=== PATIENT | female | born 1990 | race African-American/Black ===

== ENCOUNTER 2023-07-09 10:50 | Emergency (ER) | payer OTHER ==
[~2023-07-09] VITALS: Ht 165.1 cm; Wt 120.8 kg
[2023-07-09 10:53] VITALS: BP 101/78; PULSE 83; RESP 16; TEMP 97.6; O2SAT 100
== END 2023-07-09 11:23 | disposition home or self-care (01) ==
LOC: ER 10:51
DX: S29.012A Strain of muscle and tendon of back wall of thorax, initial encounter (principal); X58.XXXA Exposure to other specified factors, initial encounter; Y93.89 Activity, other specified; Y92.89 Other specified places as the place of occurrence of the external cause; Y99.8 Other external cause status
CPT/HCPCS: 99282

== ENCOUNTER 2025-03-17 18:41 | Emergency (ER) | payer MEDICARE, OTHER ==
[~2025-03-17] VITALS: Ht 165.1 cm; Wt 126.8 kg
[2025-03-17] MEDS: ketorolac trometh 30MG/ML vial 30 MG/ML VIAL IM STA (20:41)
[2025-03-17] MEDS ORDERED: IBUP-1986 PO (21:08)
[2025-03-17] MEDS ORDERED: ACET-1025 PO (21:08)
--- NOTE | 2025-03-17 21:09 | Physician Documentation ---
History of Present Illness ~ Chief Complaint: Back Pain Stated Complaint: BACK PAIN Time Seen by MD: 19:18 HPI Patient is seen today with complaints of acute on chronic low back pain. Patient states she has a long history of back pain and scoliosis with back surgeries and states she has some painful orthopedic hardware. Patient denies currently taking Tylenol or ibuprofen. She denies any saddle anesthesia or changes in bowel or bladder habits or numbness or tingling of her upper or lower extremities. Patient has no other concern or complaint at this time. She denies taking opiate pain medications currently. Medication Reconciliation Allergies: Coded Allergies: No Known Allergies (Unverified , 03/17/25) Review of Systems Constitutional: Denies: chills, fever, weakness Eyes: Denies: pain, blurred vision ENT: Denies: ear pain, nose pain, throat pain, mouth pain Respiratory: Denies: cough, shortness of breath Cardiovascular: Denies: chest pain, palpitations Gastrointestinal: Denies: abdominal pain, nausea, vomiting Genitourinary: Denies: burning, dysuria Female Genitalia: Denies: vaginal discharge, pelvic pain Neurological: Denies: headache, dizziness Musculoskeletal: Denies: pain, swelling Integumentary: Denies: rash, lesions Allergic/Immunologic: Denies: hives, itching Hematologic/Lymphatic: Denies: no symptoms reported Psychiatric: Denies: depression, anxiety Physical Exam Physical Exam Vital Signs: Temperature: 98.2, Source: Temporal, Heart Rate: 108, Respiratory Rate: 18, BP: 167/112, Pulse Oximetry: 20, Weight: 126.800 Oxygen Flow Rate: 0 Physical Exam General: Awake and Alert, no acute distress. HEENT: Conjunctiva pink, Sclera clear, Mucus Membranes moist. Neck: Supple without masses and tenderness. Resp: Unlabored. Lungs clear to auscultation bilaterally. Heart: Regular Rate and rhythm, normal S1 and S2 without murmur, rub or gallop. Musculoskeletal: Patient on exam does have significant decreased range of motion of the spine in all planes of motion, patient is neurovascularly intact distally of the bilateral upper and lower extremities, strength and motor function intact distally. Patient does have scoliosis appreciable on exam of the spine. Extremities: No cyanosis,clubbing or edema. Skin: Warm and Dry. Progress Results/Orders Results/Orders Completed Orders - ANDREINA ALVAREZ PAC Ketorolac Trometh 30mg/Ml Vial (Toradol (03/17/25 20:28) Acetaminophen 325mg Tablet (Tylenol Tabl (03/17/25 20:30) Medications Received in ER Medications (Trade) Dose Ordered Sig/Bob Route PRN Reason Start Time Stop Time Status Last Admin Dose Admin (Toradol inj. 30mg/ml) 30 mg ONCE STAT IM 03/17/25 20:28 03/17/25 20:29 DC 03/17/25 20:41 30 MG (Tylenol tablet) 975 mg ONCE ONCE PO 03/17/25 20:30 03/17/25 20:31 DC 03/17/25 20:40 975 MG Vital Signs 03/17/25 18:43 Temp 98.2 Pulse 108 Resp 18 B/P (MAP) 167/112 Pulse Ox 20 O2 Flow Rate 0 Medical Decision Making Findings Patient is seen today with complaints of acute on chronic low back pain. Patient states she has a long history of back pain and scoliosis with back surgeries and states she has some painful orthopedic hardware. Patient denies currently taking Tylenol or ibuprofen. She denies any saddle anesthesia or changes in bowel or bladder habits or numbness or tingling of her upper or lower extremities. Patient has no other concern or complaint at this time. She denies taking opiate pain medications currently. Patient was given dose of Toradol 30 mg IM in the ED today. Prescription of ibuprofen and Tylenol sent to patient's pharmacy. Patient will follow up with primary care for referral to orthopedic metrology specialist and will return to ED with any worsening, concerning or changing symptoms. Departure Disposition: 01 HOME / SELF CARE / HOMELESS Impression: Primary Impression: Chronic back pain Qualified Codes: M54.50 - Low back pain, unspecified; G89.29 - Other chronic pain Condition: Improved Discharge Instructions: Chronic Back Pain Additional Instructions: Patient was given dose of Toradol 30 mg IM in the ED today. Prescription of ibuprofen and Tylenol sent to patient's pharmacy. Patient will follow up with primary care for referral to orthopedic metrology specialist and will return to ED with any worsening, concerning or changing symptoms. Referrals: NO PRIMARY CARE PROVIDER (PCP) Prescriptions Acetaminophen (Tylenol Extra Strength) 500 Mg Tablet 2 TAB PO Q6H PRN PRN for pain or fever for 7 Days, #56 TAB Prov: ANDREINA ALVAREZ 03/17/25 Ibuprofen (Ibuprofen) 800 Mg Tablet 1 TAB PO Q8H for pain for 10 Days, #30 TAB 0 Refills Prov: ANDREINA ALVAREZ 03/17/25 Signature Scribe Signature: No scribe Attestation: No scribe ANDREINA ALVAREZ PAC Mar 17, 2025 21:09
[2025-03-17 21:17] VITALS: BP 165/109; PULSE 99; RESP 18; TEMP 98.6; O2SAT 99
== END 2025-03-17 21:18 | disposition home or self-care (01) ==
LOC: ER 18:42
DX: G89.29 Other chronic pain (principal); M54.50 Low back pain, unspecified
CPT/HCPCS: 96372; 99283; J1885